=== PATIENT | male | born 1975 | race Caucasian/White ===

== ENCOUNTER 2023-12-21 19:39 | Emergency (ER) | payer BC, OTHER ==
[2023-12-21 19:49] VITALS: BP 135/82; PULSE 92; RESP 20; BMI 33.9
[2023-12-21 19:50] VITALS: TEMP 98.1
[2023-12-21] MEDS ORDERED: ACETAMINOPHEN 325 MG TABLET (FP) ONE (20:49)
[2023-12-21] MEDS: ACETAMINOPHEN 325 MG TABLET (FP) PO ONE (20:50)
[2023-12-21] MEDS ORDERED: ceFAZolin SODIUM 1 GM VIAL ONE (21:07)
[2023-12-21] MEDS: CEFAZOLIN SODIUM 2 GM in DEXTROSE 5%-WATER 100 ML IVPB ONE (21:14)
[2023-12-21 21:15] LABS: HEMATOCRIT 41.3 % (35.4-49); HEMOGLOBIN 14.1 G/dL (11.7-16.9); MCH 27.8 pg (25.7-33.7); MEAN CELL VOLUME 81.8 fl (80-96); MEAN PLT VOLUME 8.2 fl (7.5-11.1); PLATELET COUNT 170.5 10^3/uL (134-434); RBC 5.05 10^6/uL (4.00-5.60); RDW 14.3 % (11.9-15.9); WHITE BLOOD COUNT 8.8 10^3/uL (4.0-10.8)
[2023-12-21] MEDS: CEFAZOLIN 2 GM in DEXTROSE 5%-WATER - 50 ML IVPB ONE (21:24)
[2023-12-21 21:27] LABS: INR 1.06 (0.83-1.09); PROTHROMBIN TIME (PATIENT) 12.3 SEC (9.7-13.0)
[2023-12-21 21:29] LABS: PLATELET ESTIMATE ADEQUATE
[2023-12-21 21:37] LABS: ALBUMIN 4.5 g/dl (3.4-5.0); BILIRUBIN,TOTAL 0.5 mg/dl (0.2-1); CALCIUM 9.5 mg/dl (8.5-10.1); CREATININE 1.2 mg/dl (0.6-1.3); POTASSIUM 4.1 mmol/L (3.5-5.1); TOT PROT 6.5 g/dl (6.4-8.2); URIC ACID 5.9 mg/dl (2.6-7.2)
[2023-12-21 21:48] LABS: ERYTHROCYTE SEDIMENTATION RATE 14 mm/hr (0-10)
[2023-12-21] MEDS ORDERED: DALBAVANCIN HCL 500 MG VIAL (RESTRICTED TO ID ONLY) IVPB ONE (22:48)
[2023-12-21] MEDS: DALBAVANCIN HCL 1,500 MG in DEXTROSE 5%-WATER - 500 ML IVPB ONE (23:20)
== END 2023-12-22 00:58 | disposition home or self-care (01) ==
LOC: FER 19:39
DX: L03.113 Cellulitis of right upper limb (principal)
CPT/HCPCS: 36415; 73070-TC-RT-FY; 80053; 84550; 85025; 85610; 85651; 86140; 99284-25; J0875